=== PATIENT | female | born 1960 | race Two or more races ===

== ENCOUNTER 2017-05-24 04:45 | Emergency (ER) | payer BC, OTHER ==
[~2017-05-24] VITALS: Ht 160 cm; Wt 59.4 kg
[2017-05-24 04:45] VITALS: BP 164/94
[2017-05-24 05:33] LABS: APPEARANCE,URINE CLOUDY (CLEAR); BILIRUBIN,URINE NEGATIVE (NEGATIVE); BLOOD, URINE 3+ Ery/uL (NEGATIVE); COLOR,URINE RED (YELLOW); KETONES,URINE NEGATIVE (NEGATIVE); LEUKOCYTE ESTERASE ,URINE 2+ (NEGATIVE); NITRITE, URINE NEGATIVE (NEGATIVE); PROTEIN,URINE 1+ mg/dl (NEGATIVE); UGLUCOSE NEGATIVE (NEGATIVE); UROBILINOGEN,URINE 0.2 EU/dL (0.2)
[2017-05-24 05:39] LABS: BACTERIA,URINE Moderate /HPF (None Seen); RBC,URINE TOO NUMEROUS TO COUN /HPF (0-2); SQUAMOUS EPITHELIAL CELL,UR Few /HPF (None Seen); WBC,URINE 21-50 /HPF (0-3)
== END 2017-05-24 06:27 | disposition home or self-care (01) ==
LOC: ER 04:47
DX: N39.0 Urinary tract infection, site not specified (principal); I10 Essential (primary) hypertension; Z88.2 Allergy status to sulfonamides; Z88.8 Allergy status to other drugs, medicaments and biological substances
CPT/HCPCS: 81001; 87086; 99284; A4606; Z7610; 81000-TC

== ENCOUNTER 2017-07-08 08:39 | Emergency (ER) | payer BC ==
[~2017-07-08] VITALS: Ht 160 cm; Wt 59.0 kg
--- NOTE | 2017-07-08 08:53 | NUR ---
SELF PRESENT TO ER C/O BLOOD IN URINE THIS AM. DENIES MENSTRUATION. A/OX 4. BREATHING EVEN AND UNLABORED. NO SOB. VITALS STABLE. SAFETY AND COMFORT MEASURES IN PLACE. URINE COLLECTED. AWAITING MD ORDERS.
[2017-07-08 09:15] VITALS: BP 138/72
--- NOTE | 2017-07-08 09:17 | NUR ---
Patient discharged to home in stable condition. Written and verbal after care instructions given. Patient verbalizes understanding of instruction.
[2017-07-08 09:22] LABS: APPEARANCE,URINE CLOUDY (CLEAR); BILIRUBIN,URINE NEGATIVE (NEGATIVE); BLOOD, URINE 3+ Ery/uL (NEGATIVE); COLOR,URINE YELLOW (YELLOW); KETONES,URINE NEGATIVE (NEGATIVE); LEUKOCYTE ESTERASE ,URINE 2+ (NEGATIVE); NITRITE, URINE NEGATIVE (NEGATIVE); PROTEIN,URINE 1+ mg/dl (NEGATIVE); UGLUCOSE NEGATIVE (NEGATIVE); UROBILINOGEN,URINE 0.2 EU/dL (0.2)
[2017-07-08 09:24] LABS: BACTERIA,URINE Few /HPF (None Seen); RBC,URINE TOO NUMEROUS TO COUN /HPF (0-2)
[2017-07-08 09:25] LABS: SQUAMOUS EPITHELIAL CELL,UR Few /HPF (None Seen)
== END 2017-07-08 09:16 | disposition home or self-care (01) ==
LOC: ER 08:42
DX: N39.0 Urinary tract infection, site not specified (principal); I10 Essential (primary) hypertension; F10.10 Alcohol abuse, uncomplicated; Z88.2 Allergy status to sulfonamides; Z88.8 Allergy status to other drugs, medicaments and biological substances
CPT/HCPCS: 81001; 87086; 99284; A4606; Z7610; 81000-TC